=== PATIENT | male | born 1960 | race African-American/Black ===

== ENCOUNTER 2020-12-28 07:22 | Inpatient (IN) | payer OTHER ==
[~2020-12-28] VITALS: Ht 167.6 cm; Wt 91.6 kg
[2020-12-28 09:00] LABS: BASOPHILS % 0.3 % (0.0-2.0); HEMOGLOBIN. 12.9 g/dL (14.0-18.0); LYMPHOCYTES % 7.5 % (20.0-50.0); MEAN CORPUSCULAR HEMOGLOBIN 29.3 pg (28.0-32.0); MEAN CORPUSCULAR VOLUME 86.6 fL (80.0-94.0); MEAN PLATELET VOLUME 7.6 fl (7.4-10.4); MONOCYTES % 3.8 % (2.0-8.0); NEUTROPHILS % 88.4 % (40.0-76.0); PLATELET 186 x1000/uL (130-400); RED BLOOD CELL COUNT 4.39 mill/uL (4.7-6.1); RED CELL DISTRIBUTION WIDTH 14.5 % (11.6-14.6)
[2020-12-28 09:05] LABS: CHLORIDE 116 mEq/L (98-107)
[2020-12-28 09:09] LABS: ETHANOL BLOOD < 10 mg/dL
[2020-12-28 09:59] LABS: CLARITY URINE CLOUDY (CLEAR); COLOR URINE YELLOW (YELLOW); KETONES URINE NEGATIVE (NEGATIVE); LEUKOCYTE ESTERASE URINE NEGATIVE (NEGATIVE); NITRITE URINE NEGATIVE (NEGATIVE); OCCULT BLOOD URINE 1+ (NEGATIVE); PROTEIN URINE NEGATIVE (NEGATIVE); SPECIFIC GRAVITY URINE 1.011 (1.005-1.030); UROBILINOGEN URINE 0.2 E.U./dL (0.2-1.0)
[2020-12-28 10:18] LABS: *AMPHETAMINES SCREEN URINE NEGATIVE (NEGATIVE); *BARBITURATES SCREEN URINE NEGATIVE (NEGATIVE); *COCAINE SCREEN URINE NEGATIVE (NEGATIVE); CANNABINOID URINE SCREEN PRESUMTIVE POSITIVE (NEGATIVE); OPIATES URINE SCREEN NEGATIVE (NEGATIVE); PHENCYCLIDINE URINE SCREEN NEGATIVE (NEGATIVE)
[2020-12-28 10:19] LABS: *BENZODIAZEPINES SCREEN URINE NEGATIVE (NEGATIVE); METHADONE URINE SCREEN NEGATIVE (NEGATIVE)
[2020-12-28] MEDS ORDERED: IOHEXOL-350 100 ML BOTTLE ONE (15:39)
[2020-12-28] MEDS ORDERED: HYDRALAZINE 20MG/ML VIAL IV PRN (18:15)
[2020-12-28] MEDS ORDERED: ONDANSETRON HCL 4MG/2ML INJ IV PRN (18:15)
[2020-12-28] MEDS ORDERED: ACETAMINOPHEN 650MG SUPP PR PRN ×2 (18:15)
[2020-12-28] MEDS: HYDRALAZINE 20MG/ML VIAL IV PRN (18:45)
[2020-12-28] MEDS: NITROGLYCERIN OINT 1GM/INCH UDPKT TD SCH ×2 (18:51→22:41)
[2020-12-28] MEDS: DEXT 5%/LACTATED RINGERS 1,000 ML IV SCH (18:51)
[2020-12-28 20:00] VITALS: BP 160/98
[2020-12-28 20:18] VITALS: BP 151/90
[2020-12-28 22:00] VITALS: BP 162/98
[2020-12-28] MEDS: ENOXAPARIN 30MG/0.3ML SYR SUBCUT SCH (22:41)
[2020-12-29] VITALS (25 sets, daily range): BP systolic 141–187; BP diastolic 68–155
[2020-12-29] MEDS: HYDRALAZINE 20MG/ML VIAL IV PRN ×3 (00:22→15:34)
[2020-12-29] MEDS: NITROGLYCERIN OINT 1GM/INCH UDPKT TD SCH ×3 (05:33→22:22)
[2020-12-29] MEDS: DILTIAZEM HCL 60MG TABLET PO SCH ×3 (05:33→22:00)
[2020-12-29] MEDS ORDERED: TRAZ-251 MT (05:46)
[2020-12-29] MEDS ORDERED: METO100T16 MT (05:46)
[2020-12-29] MEDS ORDERED: AMLO10TA80 MT (05:46)
[2020-12-29] MEDS ORDERED: VENL-180 PO (05:46)
[2020-12-29] MEDS ORDERED: SIMV10TA97 MT (05:46)
[2020-12-29] MEDS: DEXT 5%/LACTATED RINGERS 1,000 ML IV SCH ×2 (07:50→21:10)
[2020-12-29 08:13] LABS: HEMATOCRIT. 35.1 % (42.0-52.0); HEMOGLOBIN. 11.6 g/dL (14.0-18.0); MEAN CORPUSCULAR HEMOGLOBIN 28.9 pg (28.0-32.0); MEAN CORPUSCULAR VOLUME 87.6 fL (80.0-94.0); MEAN PLATELET VOLUME 8.1 fl (7.4-10.4); PLATELET 180 x1000/uL (130-400); RED CELL DISTRIBUTION WIDTH 14.6 % (11.6-14.6)
[2020-12-29 08:19] LABS: PHOSPHORUS 1.8 mg/dL (2.5-4.9)
[2020-12-29] MEDS: AMLODIPINE 5MG TABLET PO SCH (09:30)
[2020-12-29] MEDS ORDERED: POTASSIUM PHOS,M-BASIC-D-BASIC 15 MMOL in DEXT 5% WATER 245 ML IV NR (10:30)
[2020-12-29 10:49] LABS: BG CARBOXYHEMOGLOBIN 0.2 % (0.5-1.5); BG DEOXYHEMOGLOBIN 5.1 % (0.0-5.0); BG FRACTION INSPIRED OXYGEN 36; BG HCO3 ACT 16.6 mmol/L (22.0-26.0); BG METHEMOGLOBIN 0.4 % (0.0-1.5); BG OXYGEN SATURATION 94.9 % (92.0-98.5); BG OXYHEMOGLOBIN 94.3 % (94.0-97.0); BG PCO2 25.2 mmHg (35.0-45.0); BG PH 7.437 (7.350-7.450); BG PO2 74.9 mmHg (75.0-100.0); BG SAMPLE SITE RIGHT RADIAL; BG VENT MODE NASAL CANNULA
[2020-12-29] MEDS: CLOPIDOGREL 75MG TABLET PO SCH (11:00)
[2020-12-29] MEDS: PANTOPRAZOLE SODIUM 40 MG/VIAL IV SCH (11:02)
[2020-12-29] MEDS ORDERED: LORAZEPAM 2MG/ML CPJ IV NR (14:30)
[2020-12-29] MEDS: DEXAMETHASONE 4MG/ML 1ML VIAL IV SCH ×3 (14:49→23:56)
[2020-12-29 17:44] LABS: PLATELET ESTIMATE NORMAL
[2020-12-29] MEDS: ENOXAPARIN 30MG/0.3ML SYR SUBCUT SCH ×2 (20:00→23:57)
[2020-12-29] MEDS: ATORVASTATIN CALCIUM 40MG TABLET PO SCH (21:00)
[2020-12-29] MEDS ORDERED: MORPHINE SULFATE 2 MG/ML CPJ (NOT FOR IM USE) IV PRN (21:00)
[2020-12-29 21:53] LABS: BG BASE EXCESS -6.2 mmol/L (-2.0-2.0); BG CARBOXYHEMOGLOBIN 0.3 % (0.5-1.5); BG DEOXYHEMOGLOBIN 3.1 % (0.0-5.0); BG FRACTION INSPIRED OXYGEN 32; BG HCO3 ACT 16.6 mmol/L (22.0-26.0); BG METHEMOGLOBIN 0.4 % (0.0-1.5); BG OXYGEN SATURATION 96.9 % (92.0-98.5); BG OXYHEMOGLOBIN 96.2 % (94.0-97.0); BG PH 7.424 (7.350-7.450); BG PO2 93.3 mmHg (75.0-100.0); BG SAMPLE SITE RIGHT RADIAL; BG TOTAL HEMOGLOBIN 12.7 g/dL (12.0-18.0); BG VENT MODE NASAL CANNULA
[2020-12-29] MEDS: NICARDIPINE 100 MG in SODIUM CHLORIDE 0.9% 60 ML IV PRN (22:09)
[2020-12-30] VITALS (98 sets, daily range): BP systolic 94–186; BP diastolic 56–124
[2020-12-30] MEDS: DEXT 5%/LACTATED RINGERS 1,000 ML IV SCH ×2 (04:22→23:29)
[2020-12-30] MEDS: DILTIAZEM HCL 60MG TABLET PO SCH ×3 (05:02→22:00)
[2020-12-30] MEDS: DEXAMETHASONE 4MG/ML 1ML VIAL IV SCH ×4 (05:12→23:29)
[2020-12-30] MEDS: NITROGLYCERIN OINT 1GM/INCH UDPKT TD SCH ×3 (05:13→22:00)
[2020-12-30 05:59] LABS: HEMOGLOBIN. 11.6 g/dL (14.0-18.0); MEAN CORPUSCULAR HEMOGLOBIN 28.4 pg (28.0-32.0); MEAN CORPUSCULAR VOLUME 88.6 fL (80.0-94.0); MEAN PLATELET VOLUME 8.4 fl (7.4-10.4); PLATELET 186 x1000/uL (130-400); RED BLOOD CELL COUNT 4.06 mill/uL (4.7-6.1); RED CELL DISTRIBUTION WIDTH 15.3 % (11.6-14.6)
[2020-12-30 06:01] LABS: INR 0.9; PROTHROMBIN TIME 9.8 sec (9.6-11.0)
[2020-12-30 06:12] LABS: CHLORIDE 123 mEq/L (98-107)
[2020-12-30 06:27] LABS: PHOSPHORUS 2.1 mg/dL (2.5-4.9)
[2020-12-30 06:45] LABS: CREATINE KINASE 2584 IU/L (39-308)
[2020-12-30] MEDS ORDERED: FENTANYL CITRATE/PF 2,500 MCG in SODIUM CHLORIDE 0.9% 200 ML IV PRN (07:30)
[2020-12-30] MEDS: NICARDIPINE 100 MG in SODIUM CHLORIDE 0.9% 60 ML IV PRN (07:42)
[2020-12-30] MEDS: PROPOFOL 10MG/ML 100ML 100 ML IV PRN ×2 (07:44→11:00)
[2020-12-30] MEDS ORDERED: AMIODARONE HCL 900 MG in DEXT 5% WATER 482 ML IV SCH (08:15)
[2020-12-30] MEDS ORDERED: DILTIAZEM HCL 5MG/ML 5ML VIAL IV PRN (08:15)
[2020-12-30] MEDS ORDERED: AMIODARONE HCL 50MG/ML 3ML VIAL IV ONE (08:15)
[2020-12-30] MEDS ORDERED: AMIODARONE HCL 150 MG in DEXT 5% WATER 97 ML IV SCH (08:30)
[2020-12-30] MEDS ORDERED: DILTIAZEM HCL 5MG/ML 5ML VIAL IV SCH (08:52)
[2020-12-30] MEDS: AMLODIPINE 5MG TABLET PO SCH (09:00)
[2020-12-30] MEDS: CLOPIDOGREL 75MG TABLET PO SCH (09:00)
[2020-12-30] MEDS ORDERED: SODIUM CHLORIDE 0.9% 1000ML BAG (SEPSIS BOLUS) IV ONE (09:00)
[2020-12-30 09:25] LABS: BG BASE EXCESS -7.7 mmol/L (-2.0-2.0); BG CARBOXYHEMOGLOBIN 0.3 % (0.5-1.5); BG DEOXYHEMOGLOBIN 1.7 % (0.0-5.0); BG FRACTION INSPIRED OXYGEN 100; BG HCO3 ACT 16.2 mmol/L (22.0-26.0); BG METHEMOGLOBIN 0.4 % (0.0-1.5); BG OXYGEN SATURATION 98.3 % (92.0-98.5); BG OXYHEMOGLOBIN 97.6 % (94.0-97.0); BG PH 7.379 (7.350-7.450); BG SAMPLE SITE RIGHT RADIAL; BG TOTAL HEMOGLOBIN 11.3 g/dL (12.0-18.0); BG VENT MODE VENT - AC
[2020-12-30] MEDS ORDERED: PIPERACILLIN/TAZOBACTAM 3.375 G in DEXT 5% WATER 100 ML IV SCH (09:45)
[2020-12-30] MEDS ORDERED: POTASSIUM PHOS,M-BASIC-D-BASIC 15 MMOL in DEXT 5% WATER 250 ML IV SCH (10:00)
[2020-12-30] MEDS ORDERED: MANNITOL 20% (20GM/100ML) BAG 500ML PREMIX IV ONE (10:00)
[2020-12-30] MEDS ORDERED: VECURONIUM BROMIDE 10 MG/VIAL IV ONE (10:41)
[2020-12-30] MEDS ORDERED: ETOMIDATE 2MG/ML 10ML VIAL IV ONE (10:41)
[2020-12-30] MEDS ORDERED: MANNITOL 20% 200 ML IV NR (12:00)
[2020-12-30 12:24] LABS: PLATELET ESTIMATE NORMAL
[2020-12-30] MEDS: IPRATROPIUM BROMIDE (0.02%) 0.5MG/2.5ML NEB HHN SCH ×3 (12:25→20:03)
[2020-12-30] MEDS: PANTOPRAZOLE SODIUM 40 MG/VIAL IV SCH (13:43)
[2020-12-30] MEDS: PIPERACILLIN/TAZOBACTAM 2.25 G in DEXTROSE 5% WATER 50 ML IV SCH ×2 (13:43→20:30)
[2020-12-30] MEDS: ENOXAPARIN 30MG/0.3ML SYR SUBCUT SCH (20:30)
[2020-12-30] MEDS: ATORVASTATIN CALCIUM 40MG TABLET PO SCH (20:31)
[2020-12-31] VITALS (90 sets, daily range): BP systolic 94–152; BP diastolic 58–90
[2020-12-31] MEDS: IPRATROPIUM BROMIDE (0.02%) 0.5MG/2.5ML NEB HHN SCH ×4 (00:32→20:35)
[2020-12-31 04:58] LABS: HEMATOCRIT. 37.3 % (42.0-52.0); HEMOGLOBIN. 12.2 g/dL (14.0-18.0); MEAN CORPUSCULAR HEMOGLOBIN 28.8 pg (28.0-32.0); MEAN CORPUSCULAR VOLUME 87.8 fL (80.0-94.0); MEAN PLATELET VOLUME 8.2 fl (7.4-10.4); PLATELET 170 x1000/uL (130-400); RED BLOOD CELL COUNT 4.25 mill/uL (4.7-6.1); RED CELL DISTRIBUTION WIDTH 15.3 % (11.6-14.6)
[2020-12-31] MEDS: PIPERACILLIN/TAZOBACTAM 2.25 G in DEXTROSE 5% WATER 50 ML IV SCH ×3 (05:05→20:14)
[2020-12-31] MEDS: DEXAMETHASONE 4MG/ML 1ML VIAL IV SCH ×2 (05:05→12:17)
[2020-12-31] MEDS: NITROGLYCERIN OINT 1GM/INCH UDPKT TD SCH ×3 (05:06→21:26)
[2020-12-31] MEDS: DILTIAZEM HCL 60MG TABLET PO SCH (05:06)
[2020-12-31 05:10] LABS: PHOSPHORUS 2.1 mg/dL (2.5-4.9)
[2020-12-31] MEDS: NICARDIPINE 100 MG in SODIUM CHLORIDE 0.9% 60 ML IV PRN ×2 (05:37→20:14)
[2020-12-31] MEDS ORDERED: DOBUTAMINE 250MG PREMIX 250 ML IV PRN (07:30)
[2020-12-31 08:41] LABS: BG CARBOXYHEMOGLOBIN 0.1 % (0.5-1.5); BG DEOXYHEMOGLOBIN 1.5 % (0.0-5.0); BG FRACTION INSPIRED OXYGEN 100; BG HCO3 ACT 15.9 mmol/L (22.0-26.0); BG METHEMOGLOBIN 0.3 % (0.0-1.5); BG OXYGEN SATURATION 98.5 % (92.0-98.5); BG OXYHEMOGLOBIN 98.1 % (94.0-97.0); BG PCO2 31.7 mmHg (35.0-45.0); BG PH 7.318 (7.350-7.450); BG PO2 135.1 mmHg (75.0-100.0); BG SAMPLE SITE RIGHT RADIAL; BG VENT MODE VENT - AC
[2020-12-31] MEDS ORDERED: DOPAMINE 400MG/250ML PREMIX 250 ML IV PRN (08:45)
[2020-12-31] MEDS: CLOPIDOGREL 75MG TABLET PO SCH (09:00)
[2020-12-31] MEDS: AMLODIPINE 5MG TABLET PO SCH (09:00)
[2020-12-31] MEDS: PANTOPRAZOLE SODIUM 40 MG/VIAL IV SCH (12:18)
[2020-12-31] MEDS: DEXT 5%/LACTATED RINGERS 1,000 ML IV SCH (12:22)
[2020-12-31 12:27] LABS: PLATELET ESTIMATE NORMAL
[2020-12-31] MEDS ORDERED: THROMBIN (BOVINE) 5000 UNITS/VIAL TOP ONE (15:04)
[2020-12-31] MEDS ORDERED: LACTATED RINGERS 3,000 ML IV ONE (15:04)
[2020-12-31] MEDS ORDERED: POLYMYXIN B SULFATE 500000 UNITS/VIAL ONE (15:04)
[2020-12-31] MEDS ORDERED: LIDOCAINE HCL/EPINEPHRINE 1%-EPI 1:100,000 20 ML VIAL ONE (15:04)
[2020-12-31] MEDS ORDERED: GENTAMICIN SULF 40MG/ML 2ML VIAL ONE (15:21)
[2020-12-31] MEDS: ENOXAPARIN 30MG/0.3ML SYR SUBCUT SCH (20:00)
[2020-12-31] MEDS: ATORVASTATIN CALCIUM 40MG TABLET PO SCH (20:14)
[2020-12-31] MEDS ORDERED: SODIUM CHLORIDE 0.9% 500 ML IV ONE (21:30)
[2020-12-31] MEDS ORDERED: POTASSIUM PHOS,M-BASIC-D-BASIC 20 MMOL in DEXT 5% WATER 243.3333 ML IV NR (22:30)
[2021-01-01] VITALS (102 sets, daily range): BP systolic 80–171; BP diastolic 46–84
[2021-01-01 00:20] LABS: CLARITY URINE CLEAR (CLEAR); COLOR URINE YELLOW (YELLOW); KETONES URINE NEGATIVE (NEGATIVE); LEUKOCYTE ESTERASE URINE NEGATIVE (NEGATIVE); NITRITE URINE NEGATIVE (NEGATIVE); OCCULT BLOOD URINE TRACE (NEGATIVE); PROTEIN URINE TRACE (NEGATIVE); SPECIFIC GRAVITY URINE 1.025 (1.005-1.030); UROBILINOGEN URINE 0.2 E.U./dL (0.2-1.0)
[2021-01-01] MEDS: IPRATROPIUM BROMIDE (0.02%) 0.5MG/2.5ML NEB HHN SCH ×4 (02:25→20:55)
[2021-01-01] MEDS: DEXT 5%/LACTATED RINGERS 1,000 ML IV SCH (03:03)
[2021-01-01] MEDS: PIPERACILLIN/TAZOBACTAM 2.25 G in DEXTROSE 5% WATER 50 ML IV SCH ×3 (03:03→20:00)
[2021-01-01] MEDS: NICARDIPINE 100 MG in SODIUM CHLORIDE 0.9% 60 ML IV PRN (03:04)
[2021-01-01 04:43] LABS: HEMOGLOBIN. 10.3 g/dL (14.0-18.0); MEAN CORPUSCULAR HEMOGLOBIN 29.2 pg (28.0-32.0); MEAN CORPUSCULAR VOLUME 87.8 fL (80.0-94.0); MEAN PLATELET VOLUME 8.3 fl (7.4-10.4); PLATELET 157 x1000/uL (130-400); RED BLOOD CELL COUNT 3.53 mill/uL (4.7-6.1); RED CELL DISTRIBUTION WIDTH 15.5 % (11.6-14.6)
[2021-01-01 04:57] LABS: PHOSPHORUS 4.3 mg/dL (2.5-4.9)
[2021-01-01] MEDS: NITROGLYCERIN OINT 1GM/INCH UDPKT TD SCH ×3 (05:26→21:41)
[2021-01-01] MEDS: SODIUM CHLORIDE 0.9% 1,000 ML IV SCH ×2 (06:14→17:08)
[2021-01-01] MEDS: AMLODIPINE 5MG TABLET PO SCH (09:00)
[2021-01-01] MEDS: CLOPIDOGREL 75MG TABLET PO SCH (09:00)
[2021-01-01 09:17] LABS: BG BASE EXCESS -9.1 mmol/L (-2.0-2.0); BG CARBOXYHEMOGLOBIN 0.3 % (0.5-1.5); BG FRACTION INSPIRED OXYGEN 80; BG HCO3 ACT 15.2 mmol/L (22.0-26.0); BG METHEMOGLOBIN 0.3 % (0.0-1.5); BG OXYHEMOGLOBIN 98.4 % (94.0-97.0); BG PCO2 27.9 mmHg (35.0-45.0); BG PH 7.353 (7.350-7.450); BG PO2 233.8 mmHg (75.0-100.0); BG SAMPLE SITE RIGHT RADIAL; BG TOTAL HEMOGLOBIN 11.3 g/dL (12.0-18.0); BG VENT MODE VENT - AC
[2021-01-01] MEDS: PANTOPRAZOLE SODIUM 40 MG/VIAL IV SCH (09:29)
[2021-01-01] MEDS ORDERED: LIDOCAINE HCL 1% 20ML VIAL (Pyxis) INJ ONE (09:46)
[2021-01-01] MEDS ORDERED: HEPARIN 1000 UNITS/ML 10ML ONE (09:46)
[2021-01-01] MEDS: IPRATROPIUM/ALBUTEROL 0.5-3(2.5)MG/3ML NEB NEB PRN ×2 (11:07→16:13)
[2021-01-01] MEDS ORDERED: PHENYLEPHRINE 100 MG in DEXT 5% WATER 240 ML IV PRN (11:30)
[2021-01-01 14:34] LABS: PLATELET ESTIMATE NORMAL
[2021-01-01] MEDS ORDERED: METOPROLOL TARTRATE 5MG/5ML VIAL IV SCH (14:45)
[2021-01-01] MEDS: ENOXAPARIN 30MG/0.3ML SYR SUBCUT SCH (20:00)
[2021-01-01] MEDS: METOPROLOL TARTRATE 5MG/5ML VIAL IV SCH (20:01)
[2021-01-01] MEDS: ATORVASTATIN CALCIUM 40MG TABLET PO SCH (20:08)
[2021-01-01] MEDS ORDERED: METOPROLOL TARTRATE 25MG TABLET PO SCH (21:00)
[2021-01-02] VITALS (89 sets, daily range): BP systolic 87–142; BP diastolic 58–92
[2021-01-02] MEDS: IPRATROPIUM BROMIDE (0.02%) 0.5MG/2.5ML NEB HHN SCH ×4 (01:23→20:17)
[2021-01-02] MEDS: METOPROLOL TARTRATE 5MG/5ML VIAL IV SCH ×4 (03:00→22:54)
[2021-01-02] MEDS: PIPERACILLIN/TAZOBACTAM 2.25 G in DEXTROSE 5% WATER 50 ML IV SCH ×3 (03:08→20:45)
[2021-01-02] MEDS: SODIUM CHLORIDE 0.9% 1,000 ML IV SCH ×2 (03:09→13:13)
[2021-01-02] MEDS: NITROGLYCERIN OINT 1GM/INCH UDPKT TD SCH ×3 (05:05→22:54)
[2021-01-02 05:15] LABS: HEMATOCRIT. 25.6 % (42.0-52.0); HEMOGLOBIN. 8.3 g/dL (14.0-18.0); LYMPHOCYTES % 7.7 % (20.0-50.0); MEAN CORPUSCULAR HEMOGLOBIN 28.6 pg (28.0-32.0); MEAN CORPUSCULAR VOLUME 87.7 fL (80.0-94.0); MEAN PLATELET VOLUME 8.2 fl (7.4-10.4); MONOCYTES % 6.8 % (2.0-8.0); NEUTROPHILS % 85.5 % (40.0-76.0); PLATELET 133 x1000/uL (130-400); RED BLOOD CELL COUNT 2.92 mill/uL (4.7-6.1); RED CELL DISTRIBUTION WIDTH 15.2 % (11.6-14.6)
[2021-01-02 05:23] LABS: PHOSPHORUS 4.1 mg/dL (2.5-4.9)
[2021-01-02 05:47] LABS: HEPATITIS B SURFACE ANTIGEN NEGATIVE
[2021-01-02 06:17] LABS: HEPATITIS A AB IGM NEGATIVE (NEGATIVE)
[2021-01-02 08:40] LABS: BG BASE EXCESS -3.7 mmol/L (-2.0-2.0); BG CARBOXYHEMOGLOBIN 0.3 % (0.5-1.5); BG DEOXYHEMOGLOBIN 3.2 % (0.0-5.0); BG FRACTION INSPIRED OXYGEN 40; BG HCO3 ACT 18.7 mmol/L (22.0-26.0); BG METHEMOGLOBIN 0.3 % (0.0-1.5); BG OXYGEN SATURATION 96.8 % (92.0-98.5); BG OXYHEMOGLOBIN 96.2 % (94.0-97.0); BG PCO2 25.6 mmHg (35.0-45.0); BG PH 7.482 (7.350-7.450); BG PO2 90.9 mmHg (75.0-100.0); BG SAMPLE SITE RIGHT RADIAL; BG VENT MODE VENT - AC
[2021-01-02] MEDS: PANTOPRAZOLE SODIUM 40 MG/VIAL IV SCH (08:54)
[2021-01-02] MEDS: AMLODIPINE 5MG TABLET PO SCH (08:54)
[2021-01-02] MEDS: CLOPIDOGREL 75MG TABLET PO SCH (08:54)
[2021-01-02] MEDS: ENOXAPARIN 30MG/0.3ML SYR SUBCUT SCH (20:46)
[2021-01-02] MEDS: ATORVASTATIN CALCIUM 40MG TABLET PO SCH (21:34)
[2021-01-03] VITALS (48 sets, daily range): BP systolic 86–157; BP diastolic 50–101
[2021-01-03] MEDS: IPRATROPIUM BROMIDE (0.02%) 0.5MG/2.5ML NEB HHN SCH ×4 (02:02→19:51)
[2021-01-03] MEDS: METOPROLOL TARTRATE 5MG/5ML VIAL IV SCH ×5 (03:00→20:54)
[2021-01-03] MEDS: PIPERACILLIN/TAZOBACTAM 2.25 G in DEXTROSE 5% WATER 50 ML IV SCH ×3 (04:35→20:51)
[2021-01-03 04:38] LABS: PHOSPHORUS 5.3 mg/dL (2.5-4.9)
[2021-01-03 04:56] LABS: HEMATOCRIT. 29.5 % (42.0-52.0); HEMOGLOBIN. 9.8 g/dL (14.0-18.0); MEAN CORPUSCULAR HEMOGLOBIN 29.2 pg (28.0-32.0); MEAN CORPUSCULAR VOLUME 88.4 fL (80.0-94.0); MEAN PLATELET VOLUME 8.1 fl (7.4-10.4); PLATELET 115 x1000/uL (130-400); RED BLOOD CELL COUNT 3.34 mill/uL (4.7-6.1)
[2021-01-03] MEDS: NITROGLYCERIN OINT 1GM/INCH UDPKT TD SCH ×3 (06:00→22:00)
[2021-01-03] MEDS: DEXTROSE 5% WATER 1,000 ML IV SCH ×2 (08:52→18:26)
[2021-01-03] MEDS: PANTOPRAZOLE SODIUM 40 MG/VIAL IV SCH (09:12)
[2021-01-03] MEDS: AMLODIPINE 5MG TABLET PO SCH (09:12)
[2021-01-03] MEDS: CLOPIDOGREL 75MG TABLET PO SCH (09:12)
[2021-01-03 10:13] LABS: BG BASE EXCESS 3.1 mmol/L (-2.0-2.0); BG CARBOXYHEMOGLOBIN 0.3 % (0.5-1.5); BG DEOXYHEMOGLOBIN 1.9 % (0.0-5.0); BG FRACTION INSPIRED OXYGEN 40; BG HCO3 ACT 26.9 mmol/L (22.0-26.0); BG METHEMOGLOBIN 0.3 % (0.0-1.5); BG OXYGEN SATURATION 98.1 % (92.0-98.5); BG OXYHEMOGLOBIN 97.5 % (94.0-97.0); BG PCO2 37.4 mmHg (35.0-45.0); BG PH 7.475 (7.350-7.450); BG SAMPLE SITE RIGHT RADIAL; BG TOTAL HEMOGLOBIN 7.5 g/dL (12.0-18.0); BG VENT MODE VENT - AC
[2021-01-03 13:11] LABS: PLATELET ESTIMATE SLIGHTLY DECREASED
[2021-01-03] MEDS: ENOXAPARIN 30MG/0.3ML SYR SUBCUT SCH (20:51)
[2021-01-03] MEDS: ATORVASTATIN CALCIUM 40MG TABLET PO SCH (20:52)
[2021-01-04] VITALS (51 sets, daily range): BP systolic 85–132; BP diastolic 52–90
[2021-01-04] MEDS: IPRATROPIUM BROMIDE (0.02%) 0.5MG/2.5ML NEB HHN SCH ×4 (00:07→20:22)
[2021-01-04] MEDS: METOPROLOL TARTRATE 5MG/5ML VIAL IV SCH ×4 (03:00→21:00)
[2021-01-04] MEDS: PIPERACILLIN/TAZOBACTAM 2.25 G in DEXTROSE 5% WATER 50 ML IV SCH (03:35)
[2021-01-04] MEDS: DEXTROSE 5% WATER 1,000 ML IV SCH ×2 (05:07→13:20)
[2021-01-04 05:09] LABS: HEMATOCRIT. 30.9 % (42.0-52.0); HEMOGLOBIN. 10.1 g/dL (14.0-18.0); MEAN CORPUSCULAR HEMOGLOBIN 28.9 pg (28.0-32.0); MEAN CORPUSCULAR VOLUME 88.3 fL (80.0-94.0); MEAN PLATELET VOLUME 7.8 fl (7.4-10.4); PLATELET 118 x1000/uL (130-400); RED CELL DISTRIBUTION WIDTH 15.4 % (11.6-14.6)
[2021-01-04 05:20] LABS: PHOSPHORUS 5.9 mg/dL (2.5-4.9)
[2021-01-04] MEDS: NITROGLYCERIN OINT 1GM/INCH UDPKT TD SCH ×3 (05:35→21:21)
[2021-01-04 07:20] LABS: PLATELET ESTIMATE DECREASED
[2021-01-04] MEDS: CLOPIDOGREL 75MG TABLET PO SCH (08:29)
[2021-01-04] MEDS: PANTOPRAZOLE SODIUM 40 MG/VIAL IV SCH (08:30)
[2021-01-04] MEDS: AMLODIPINE 5MG TABLET PO SCH (08:30)
[2021-01-04 09:18] LABS: BG BASE EXCESS -1.2 mmol/L (-2.0-2.0); BG CARBOXYHEMOGLOBIN 0.3 % (0.5-1.5); BG DEOXYHEMOGLOBIN 3.4 % (0.0-5.0); BG FRACTION INSPIRED OXYGEN 40; BG HCO3 ACT 23.6 mmol/L (22.0-26.0); BG METHEMOGLOBIN 0.4 % (0.0-1.5); BG OXYGEN SATURATION 96.6 % (92.0-98.5); BG OXYHEMOGLOBIN 95.9 % (94.0-97.0); BG PCO2 39.8 mmHg (35.0-45.0); BG PH 7.391 (7.350-7.450); BG PO2 94.5 mmHg (75.0-100.0); BG SAMPLE SITE RIGHT RADIAL; BG TOTAL HEMOGLOBIN 10.3 g/dL (12.0-18.0); BG VENT MODE VENT - AC
[2021-01-04 12:58] LABS: BG BASE EXCESS -1.2 mmol/L (-2.0-2.0); BG CARBOXYHEMOGLOBIN 0.2 % (0.5-1.5); BG FRACTION INSPIRED OXYGEN 100; BG HCO3 ACT 23.8 mmol/L (22.0-26.0); BG METHEMOGLOBIN 0.2 % (0.0-1.5); BG OXYHEMOGLOBIN 98.6 % (94.0-97.0); BG PCO2 40.9 mmHg (35.0-45.0); BG PH 7.383 (7.350-7.450); BG PO2 289.8 mmHg (75.0-100.0); BG SAMPLE SITE RIGHT RADIAL; BG TOTAL HEMOGLOBIN 10.4 g/dL (12.0-18.0); BG VENT MODE VENT - AC
[2021-01-04 12:58] LABS: BG BASE EXCESS -3.2 mmol/L (-2.0-2.0); BG CARBOXYHEMOGLOBIN 0.3 % (0.5-1.5); BG DEOXYHEMOGLOBIN 0.7 % (0.0-5.0); BG FRACTION INSPIRED OXYGEN 44; BG HCO3 ACT 26.5 mmol/L (22.0-26.0); BG METHEMOGLOBIN 0.5 % (0.0-1.5); BG OXYGEN SATURATION 99.3 % (92.0-98.5); BG OXYHEMOGLOBIN 98.5 % (94.0-97.0); BG PCO2 74.9 mmHg (35.0-45.0); BG PH 7.166 (7.350-7.450); BG PO2 420.9 mmHg (75.0-100.0); BG SAMPLE SITE RIGHT RADIAL; BG TOTAL HEMOGLOBIN 10.9 g/dL (12.0-18.0); BG VENT MODE NASAL CANNULA
[2021-01-04] MEDS: ENOXAPARIN 30MG/0.3ML SYR SUBCUT SCH (20:00)
[2021-01-04] MEDS: ATORVASTATIN CALCIUM 40MG TABLET PO SCH (21:18)
[2021-01-05] VITALS (37 sets, daily range): BP systolic 72–206; BP diastolic 45–127
[2021-01-05] MEDS: IPRATROPIUM BROMIDE (0.02%) 0.5MG/2.5ML NEB HHN SCH (01:44)
[2021-01-05] MEDS: DEXTROSE 5% WATER 1,000 ML IV SCH (02:15)
[2021-01-05] MEDS: METOPROLOL TARTRATE 5MG/5ML VIAL IV SCH ×2 (03:00→08:55)
[2021-01-05] MEDS: NITROGLYCERIN OINT 1GM/INCH UDPKT TD SCH (05:31)
[2021-01-05] MEDS: IPRATROPIUM/ALBUTEROL 0.5-3(2.5)MG/3ML NEB NEB PRN (07:53)
[2021-01-05] MEDS: AMLODIPINE 5MG TABLET PO SCH (08:55)
== END 2021-01-05 12:00 | DRG 64 ==
LOC: ER 07:37 → EDBD 07:37 → EDBEDREQTM 11:33 → EDBEDREQ 11:33 → EDBEDREQSVC 11:33 → 5EST 12:15 → EDBEDREQTM 12:19 → EDBEDREQSVC 12:19 → EDBEDREQ 12:19 → ENRESERV 17:06 → MICUNO 12-29 20:34
PROVIDERS: ADMIT Internal Medicine; ATTEND Internal Medicine
PROC: 5A1955Z Respiratory Ventilation, Greater than 96 Consecutive Hours (ICD-10-PCS; principal; 2020-12-30)
PROC: 0BH17EZ Insertion of Endotracheal Airway into Trachea, Via Natural or Artificial Opening (ICD-10-PCS; 2020-12-30)
PROC: 0W9930Z Drainage of Right Pleural Cavity with Drainage Device, Percutaneous Approach (ICD-10-PCS; 2020-12-30)
PROC: 05HY33Z Insertion of Infusion Device into Upper Vein, Percutaneous Approach (ICD-10-PCS; 2020-12-30)
PROC: B54MZZA Ultrasonography of Right Upper Extremity Veins, Guidance (ICD-10-PCS; 2020-12-30)
PROC: 4A10X4Z Monitoring of Central Nervous Electrical Activity, External Approach (ICD-10-PCS; 2021-01-01)
PROC: 02HV33Z Insertion of Infusion Device into Superior Vena Cava, Percutaneous Approach (ICD-10-PCS; 2021-01-01)
PROC: B548ZZA Ultrasonography of Superior Vena Cava, Guidance (ICD-10-PCS; 2021-01-01)
DX: I63.512 Cerebral infarction due to unspecified occlusion or stenosis of left middle cerebral artery (principal); J96.01 Acute respiratory failure with hypoxia; I21.A1 Myocardial infarction type 2; G92 Toxic encephalopathy; G93.6 Cerebral edema; N17.0 Acute kidney failure with tubular necrosis; G93.5 Compression of brain; S22.41XA Multiple fractures of ribs, right side, initial encounter for closed fracture; I16.1 Hypertensive emergency; E87.2 Acidosis; E87.0 Hyperosmolality and hypernatremia; E87.3 Alkalosis; J93.9 Pneumothorax, unspecified; G93.49 Other encephalopathy; G81.91 Hemiplegia, unspecified affecting right dominant side; I48.20 Chronic atrial fibrillation, unspecified; Z66 Do not resuscitate; R47.01 Aphasia; E04.2 Nontoxic multinodular goiter; J98.2 Interstitial emphysema; X58.XXXA Exposure to other specified factors, initial encounter; I10 Essential (primary) hypertension; E83.39 Other disorders of phosphorus metabolism; R00.1 Bradycardia, unspecified; F12.90 Cannabis use, unspecified, uncomplicated; Z20.822 Contact with and (suspected) exposure to COVID-19; F17.210 Nicotine dependence, cigarettes, uncomplicated; N14.1 Nephropathy induced by other drugs, medicaments and biological substances; F10.10 Alcohol abuse, uncomplicated; T50.8X5A Adverse effect of diagnostic agents, initial encounter; Z82.49 Family history of ischemic heart disease and other diseases of the circulatory system; Y93.89 Activity, other specified; Y92.89 Other specified places as the place of occurrence of the external cause; Y99.8 Other external cause status
CPT/HCPCS: 36415; 36556; 36600; 70496; 70498; 70551; 71045; 71250; 76770; 76937; 78610; 80048; 80053; 80061; 80305; 80320; 81003; 82375; 82550; 82570; 82805; 82962; 83036; 83721; 83735; 83935; 84100; 84300; 84478; 84484; 85025; 86705; 86709; 86803; 87070; 87340; 87426; 93005; 93306; 93970; 94003; 94640; 95816; 99291; A9512; C1725; C1752; C9113; J0282; J0360; J1100; J1580; J1644; J1650; J2060; J2270; J2370; J2543; J2704; J3010; J3490; J7030; J7040; J7050; J7060; J7070; J7120; Q9967; G0480